=== PATIENT | female | born 1950 | race Caucasian/White ===

== ENCOUNTER → 2016-08-23 | Outpatient (CLI) | payer MEDICARE, OTHER | LOC: GMAL 14:40 | PROVIDERS: ATTEND Family Medicine | DX: L72.3 Sebaceous cyst (principal) ==

== ENCOUNTER → 2016-12-09 | Outpatient (CLI) | payer MEDICARE, OTHER ==
--- NOTE | 2016-12-09 10:35 | MAM ---
History: Well woman exam. Personal history of breast cancer status post left malignant lumpectomy. Date of exam: 12/09/2016 Services provided: Bilateral full field digital screening mammography. CAD, the images were reviewed with R2 computer aided detection. FINDINGS: Glandular tissue is scattered glandular contour. Comparison with 2012 exam. Postlumpectomy changes on the left are stable. No dominant mass, architectural distortion or clustered microcalcification. IMPRESSION: Benign exam Recommendation: Routine annual mammography BIRAD CATEGORY: 2 BENIGN Electronically signed by: Jaja Alejo MD 12/09/2016 10:34 AM CDT
== END ==
LOC: MAMMO 08:20
PROVIDERS: ATTEND Family Medicine
DX: Z12.31 Encounter for screening mammogram for malignant neoplasm of breast (principal)

== ENCOUNTER → 2016-12-16 | Outpatient (CLI) | payer MEDICARE, OTHER | LOC: GMAL 10:48 | PROVIDERS: ATTEND Family Medicine | DX: E03.9 Hypothyroidism, unspecified (principal); E55.9 Vitamin D deficiency, unspecified ==

== ENCOUNTER → 2017-12-29 | Outpatient (CLI) | payer MEDICARE, OTHER ==
--- NOTE | 2018-01-02 09:15 | MAM ---
EXAM DESCRIPTION: 3D Screening BILATERAL : Digital Mammography. CLINICAL HISTORY: 67 years Female SCREENING . Left breast cancer 2001. Remote family history of breast cancer. Postmenopausal. No HRT. Prior lumpectomy and radiation therapy left breast. COMPARISON: 2-D digital screening bilateral study 12/09/2016. Report from prior examination also reviewed. TECHNIQUE: Bilateral CC and MLO projection full-field images, 3-D tomosynthesis digital mammographic technique. CAD not utilized. FINDINGS: The breast parenchymal density pattern is: Scattered areas of fibroglandular density. No skin thickening or nipple retraction bilateral solitary microcalcifications and coarse calcifications. Postlumpectomy and postradiation changes with fat necrosis in the upper outer quadrant of the middle third of the left breast are stable. Adjacent skin thickening also unchanged. No new focal, stellate mass or density, focal asymmetry , and no suspicious microcalcifications bilaterally. Stable mammograms compared to prior study, taking into account differences in mammographic technique IMPRESSION: BI-RADS CATEGORY: 2 - BENIGN FINDINGS. FOLLOW UP: Routine digital bilateral screening, one year interval from December 2017. Written communication explaining the IMPRESSION and follow-up, will be mailed to the patient and referring health care provider. According to the [employer], yearly mammograms are recommended starting at age 40 and continuing as long as a woman is in good health. Any breast change noted on a breast self-exam should be reported promptly to the patient's healthcare provider. Breast MRI is recommended for women with an approximately 20-25% or greater lifetime risk of breast cancer, including women with a strong family history of breast or ovarian cancer and women who have been treated for Hodgkin's disease. A negative mammographic report should not delay tissue diagnosis in patients with significant clinical history or physical findings. Extremely dense breast tissue limits the sensitivity of digital mammography. Electronically signed by: Petros Del Valle MD 01/02/2018 9:14 AM CDT
== END ==
LOC: MAMMO 14:00
PROVIDERS: ATTEND Family Medicine
DX: Z12.31 Encounter for screening mammogram for malignant neoplasm of breast (principal)

== ENCOUNTER → 2018-02-23 | Outpatient (CLI) | payer MEDICARE, OTHER | LOC: GMAL 10:50 | PROVIDERS: ATTEND Family Medicine | DX: D51.3 Other dietary vitamin B12 deficiency anemia (principal); E03.9 Hypothyroidism, unspecified; E55.9 Vitamin D deficiency, unspecified ==

== ENCOUNTER → 2018-03-07 | Outpatient (CLI) | payer MEDICARE, OTHER | LOC: GMAL 10:47 | PROVIDERS: ATTEND Family Medicine | DX: E03.8 Other specified hypothyroidism (principal) ==

== ENCOUNTER → 2018-06-01 | Outpatient (CLI) | payer MEDICARE, OTHER | LOC: GMAL 14:27 | PROVIDERS: ATTEND Family Medicine | DX: E03.8 Other specified hypothyroidism (principal) ==

== ENCOUNTER 2018-06-30 05:31 | Day surgery (SDC) | payer MEDICARE, OTHER ==
--- NOTE | 2018-06-28 09:27 | SSS ---
CHIEF COMPLAINT: Need for colonoscopy. HISTORY OF PRESENT ILLNESS: Ms. Baltazar is a 67-year-old female who presented to my office for routine followup. It was noted she was due for a colonoscopy. She had a colonoscopy in 2005 by this physician where she had an adenomatous polyp removed. She had a repeat colonoscopy in March of 2010 that showed no polyps and rare diverticula. She presents now for repeat colonoscopy given her history of prior polyps and 8-1/2 years since last colonoscopy. PAST MEDICAL HISTORY: 1. Hypertension. She had an echocardiogram in January of 2010 which showed an ejection fraction of 58%, mild left ventricular hypertrophy and left atrial enlargement at 4.3 cm. 2. Breast cancer in 2001. She took Arimidex for 5 years. 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 She underwent radiation therapy from 07/04/02 to 08/23/02. She has had no recurrence thus far. 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 PAST SURGICAL HISTORY: 1. Dilatation and curettage in September of 1978. 2. Endometrial ablation in 1992. 3. 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 This was done 06/06/02. 4. Second left breast biopsy that showed just benign scar tissue by Dr. Hernandez in April of 2007. 5. Colonoscopies as above. CURRENT MEDICATIONS: 1. Amlodipine. 2. Lisinopril. 3. Vitamin B12. 4. Vitamin D3. FAMILY HISTORY: Father at 75 of congestive heart failure, hypertension, and alcoholic liver disease. Mother at 72 of pancreatitis. She also had pancreatic cancer per Michaela. She also had osteoporosis. She has one sister, Janina Loco, who has Coat's disease of the eye and is blind and also has hyperlipidemia. Maternal grandfather had a myocardial infarction after age 65. Maternal grandmother had breast cancer. Maternal grandfather had a stroke and type 2 diabetes. SOCIAL HISTORY: She is with one child. She has two years of college education. She has never smoked and does not consume alcohol. REVIEW OF SYSTEMS: Negative except as in the history of present illness. PHYSICAL EXAMINATION: VITAL SIGNS: Blood pressure 130/80. Height 5'10". Weight 263 pounds. Pulse 84. GENERAL: She is awake, alert and in no acute distress. HEENT: Unremarkable. NECK: Supple. LUNGS: Clear. CARDIOVASCULAR: Regular rate and rhythm without appreciable murmurs. ABDOMEN: Obese, but benign. RECTAL: Deferred until time of colonoscopy. EXTREMITIES: Without obvious edema. NEUROLOGIC: Nonfocal. DIAGNOSIS: 1. History of colonic polyps. 2. Need for screening colonoscopy. PLAN: Colonoscopy on 06/30/18. [facility][id number] [facility]
[2018-06-30] MEDS ORDERED: LACTATED RINGERS 1,000 ML ONE (06:50)
[2018-06-30] MEDS ORDERED: PROPOFOL 200 MG/20 ML VIAL IV ONE (07:00)
[2018-06-30] MEDS ORDERED: LIDOCAINE 1% 10 ML VIAL INJ ONE (07:00)
[2018-06-30] MEDS ORDERED: fentaNYL CITRATE INJ 50 MCG/ML AMP ONE (07:24)
[2018-06-30] MEDS ORDERED: MIDAZOLAM INJ 2 MG/2 ML VIAL ONE (07:24)
--- NOTE | 2018-06-30 09:14 | OP ---
DATE OF PROCEDURE: 06/30/18 PREOPERATIVE DIAGNOSIS: 1. History of colonic polyps. POSTOPERATIVE DIAGNOSIS: 1. 0.5 by 0.25 cm ascending colon polyp, biopsied times 1 to obliteration. 2. 0.25 by 0.25 cm transverse colon polyp, biopsied times 1 to obliteration. 3. Grade 1 to 2 internal hemorrhoids. 4. Otherwise normal colonoscopy to the cecum. PROCEDURE: 1. Colonoscopy. SURGEON: Samuel Tan MD. ESTIMATED BLOOD LOSS: Less than 1 mL. COMPLICATIONS: No immediate complications. ANESTHESIA: Fentanyl 1 mL, Versed 1 mg, propofol 520 mg administered intravenously via Talon Monique CRNA. TECHNIQUE: After informed consent was obtained from the patient, the patient was taken to the Endoscopy Suite and placed in the left lateral decubitus position. Incremental doses of the above listed medications were given until adequate sedation was obtained. Digital rectal examination was performed, which was unremarkable. Vital signs were monitored throughout the procedure. Supplemental oxygen was administered throughout the procedure. The colonoscope was then advanced into the patient's rectum and up through the sigmoid, descending, transverse and ascending colon to the level of the cecum. The usual cecal landmarks were identified. The terminal ileum was also entered 2 to 3 cm and photograph was taken. Photographs of the cecum were taken. The colonoscope was then slowly withdrawn taking great care to try to visualize all ram of the colon in 360 degree fashion. Overall, the bowel prep was good. The aforementioned polyps in the postoperative diagnosis were noted and biopsied , both times 1 to obliteration. No diverticula were noted throughout the colon. The scope was retroflexed upon itself in the rectum and grade 1 to 2 internal hemorrhoids were noted. After the scope was retroflexed, it was then unretroflexed and air was suctioned out of the patient's rectum. The colonoscope was removed from the patient. The patient tolerated the procedure well and was taken back to the recovery area in good condition. PLAN: Followup in my office in 7 to 10 days to review the pathology. We will probably repeat her colonoscopy in 5 years. #[id number] [facility]
[2018-06-30 10:00] VITALS: BP 133/82; TEMP 97.5; O2SAT 96
== END 2018-06-30 09:10 | disposition home or self-care (01) ==
LOC: AMB 05:31
PROVIDERS: ATTEND Family Medicine
DX: Z12.11 Encounter for screening for malignant neoplasm of colon (principal); D12.2 Benign neoplasm of ascending colon; D12.3 Benign neoplasm of transverse colon; K64.1 Second degree hemorrhoids; I10 Essential (primary) hypertension; E66.9 Obesity, unspecified; Z85.3 Personal history of malignant neoplasm of breast; Z86.010 Personal history of colon polyps; Z79.899 Other long term (current) drug therapy
CPT/HCPCS: 00812; 45380; 88305; J2250; J3010; J3490; J7120

== ENCOUNTER → 2019-02-27 | Outpatient (CLI) | payer MEDICARE, OTHER ==
--- NOTE | 2019-02-28 20:39 | MAM ---
EXAM DESCRIPTION: 3D Screening BILATERAL : Digital Mammography. CLINICAL HISTORY: 68 years Female SCREENING personal history of breast cancer, left breast, 2001. No family history breast cancer. Childbirth. Postmenopausal 20+ years.. Lifetime risk of developing breast cancer (Tyrer-Cuzick model)(%): Not calculated due to personal history of breast cancer. COMPARISON: Bilateral screening digital breast tomosynthesis 12/29/2017. TECHNIQUE: Bilateral CC and MLO projection full-field images, digital tomosynthesis mammographic technique. Bilateral digital 2-D full-field MLO images. CAD not available for tomosynthesis or 2-D images. FINDINGS: The breast parenchymal density pattern is: Scattered areas of fibroglandular density. No nipple retraction. Architectural distortion in the upper outer quadrant of the middle third of the left breast with fatty necrosis and markers of the surgical region. Stable since the prior study. Wire linear marker on the skin. Stable skin thickening lateral breast. Bilateral solitary microcalcifications. No new focal, stellate mass or density, focal asymmetry , and no suspicious microcalcifications bilaterally. Stable mammograms compared to prior study. IMPRESSION: Benign exam. BIRAD CATEGORY: 2 BENIGN FINDINGS. RECOMMENDATIONS: FOLLOW UP: Routine digital bilateral mammographic screening, one year interval from February 2019. Written communication explaining the IMPRESSION and follow-up, will be mailed to the patient and referring health care provider. According to the [employer], yearly mammograms are recommended starting at age 40 and continuing as long as a woman is in good health. Any breast change noted on a breast self-exam should be reported promptly to the patient's healthcare provider. Breast MRI is recommended for women with an approximately 20-25% or greater lifetime risk of breast cancer, including women with a strong family history of breast or ovarian cancer and women who have been treated for Hodgkin's disease. A negative mammographic report should not delay tissue diagnosis in patients with significant clinical history or physical findings. Extremely dense breast tissue limits the sensitivity of digital mammography. Electronically signed by: Petros Del Valle MD 02/28/2019 8:36 PM CDT
== END ==
LOC: MAMMO 15:00
PROVIDERS: ATTEND Family Medicine
DX: Z12.31 Encounter for screening mammogram for malignant neoplasm of breast (principal)

== ENCOUNTER → 2019-03-16 | Outpatient (CLI) | payer MEDICARE, OTHER | LOC: GMAL 10:23 | PROVIDERS: ATTEND Family Medicine | DX: D51.3 Other dietary vitamin B12 deficiency anemia (principal); E55.9 Vitamin D deficiency, unspecified; I10 Essential (primary) hypertension; Z79.899 Other long term (current) drug therapy ==

== ENCOUNTER → 2020-03-11 | Outpatient (CLI) | payer MEDICARE, OTHER ==
--- NOTE | 2020-03-12 15:39 | MAM ---
EXAM DESCRIPTION: 3D Screening BILATERAL : Digital Mammography. CLINICAL HISTORY: 69 years Female SCREENING personal history of breast cancer left with lumpectomy 2002.. Lifetime risk of developing breast cancer (Tyrer-Cuzick model)(%): Not calculated due to personal history of breast cancer. COMPARISON: Bilateral screening digital breast tomosynthesis February 2019 and December 2017. TECHNIQUE: Bilateral CC and MLO projection full-field images, digital tomosynthesis mammographic technique. Bilateral digital 2-D full-field MLO images. CAD available for 2-D images. FINDINGS: The breast parenchymal density pattern is: Scattered areas of fibroglandular density. No skin thickening or nipple retraction right breast.. At the site of prior breast cancer is architectural distortion with fatty necrosis and coarse calcifications. Middle third upper outer quadrant-lateral left breast. Lateral anterior skin thickening. Stable since the prior studies. Skin mole marker posterior inferior left breast. Bilateral solitary microcalcifications. Left breast is smaller than right breast. No new focal, stellate mass or density, focal asymmetry , and no suspicious microcalcifications bilaterally. Stable mammograms compared to prior study. IMPRESSION: Benign exam. BIRAD CATEGORY: 2 BENIGN FINDINGS. RECOMMENDATIONS: FOLLOW UP: Routine digital bilateral mammographic screening, one year interval from February 2020. Written communication explaining the IMPRESSION and follow-up, will be mailed to the patient and referring health care provider. According to the [employer], yearly mammograms are recommended starting at age 40 and continuing as long as a woman is in good health. Any breast change noted on a breast self-exam should be reported promptly to the patient's healthcare provider. Breast MRI is recommended for women with an approximately 20-25% or greater lifetime risk of breast cancer, including women with a strong family history of breast or ovarian cancer and women who have been treated for Hodgkin's disease. A negative mammographic report should not delay tissue diagnosis in patients with significant clinical history or physical findings. Extremely dense breast tissue limits the sensitivity of digital mammography. Electronically signed by: Petros Del Valle MD 03/12/2020 3:38 PM CDT
== END ==
LOC: MAMMO 13:00
PROVIDERS: ATTEND Family Medicine
DX: Z12.31 Encounter for screening mammogram for malignant neoplasm of breast (principal)

== ENCOUNTER → 2020-03-26 | Outpatient (CLI) | payer MEDICARE, OTHER | LOC: GMAL 14:51 | PROVIDERS: ATTEND Family Medicine | DX: D51.3 Other dietary vitamin B12 deficiency anemia (principal); E03.9 Hypothyroidism, unspecified; I10 Essential (primary) hypertension; E78.5 Hyperlipidemia, unspecified; E55.9 Vitamin D deficiency, unspecified ==